=== PATIENT | female | born 1980 | race Caucasian/White ===

== ENCOUNTER → 2021-07-31 | Day surgery (SDC) | payer BC ==
[~2021-07-31] MED LIST: ACETAMINOPHEN 1000 MG/100 ML 100 ML IV ONE; ATIVAN0.5 MG PO; BUPIVACAINE 0.25% 30ML SDV ONE; FENTANYL CITRATE/PF 100MCG/2 ML INJ ONE; HYDROCODON-ACE1 EA11 PO; LEXAPRO10 MG PO; LIDOCAINE 1% W/EPINEPHRINE 20 ML VIAL ONE; MEPERIDINE HCL INJ 25 MG/ML VIAL ONE; SODIUM CHLORIDE 0.9% 50ML 100 ML ONE; TRINESSA PO; ZESTRIL10 MG PO
[2021-07-31 15:40] VITALS: BP 158/88
== END | disposition home or self-care (01) ==
LOC: OR 10:21
PROVIDERS: ATTEND Podiatrist Foot & Ankle Surgery
DX: S82.52XA Displaced fracture of medial malleolus of left tibia, initial encounter for closed fracture (principal); M79.672 Pain in left foot; M25.872 Other specified joint disorders, left ankle and foot; Z01.812 Encounter for preprocedural laboratory examination
CPT/HCPCS: 27792; 29898; 76000; 81025; J0131; J0690; J2175; J3010

== ENCOUNTER → 2022-01-06 | Day surgery (SDC) | payer BC ==
[~2022-01-06] MED LIST changes: -ACETAMINOPHEN 1000 MG/100 ML 100 ML IV ONE; -BUPIVACAINE 0.25% 30ML SDV ONE; +BUPIVACAINE HCL 0.5% INJ 30 ML VIAL INJ ONE; +HYDROMORPHONE 1MG/1ML INJ ONE; +KETOROLAC TROMETHAMINE 30 MG/ML VIAL ONE; -LIDOCAINE 1% W/EPINEPHRINE 20 ML VIAL ONE; +LIDOCAINE HCL 2% LOCAL INJ 5 ML SDV VIAL INJ ONE; -MEPERIDINE HCL INJ 25 MG/ML VIAL ONE; +MIDAZOLAM HCL 2 MG/2 ML VIAL ONE; +NEOSTIGMINE 1 MG/ML 10ML VIAL ONE; +ONDANSETRON HCL INJ 2MG/ML 2ML 2 MG/ML VIAL ONE; +POVIDONE IODINE 0.05% 0.05 % ML PO ONE; +PROPOFOL IV EMULSION 10 MG/ML 20 ML VIAL ONE; +SEVOFLURANE INHAL SOLN 250 ML PEN BTL ONE
[2022-01-06 14:25] VITALS: BP 147/86
== END | disposition home or self-care (01) ==
LOC: OR 11:45
PROVIDERS: ATTEND Podiatrist Foot & Ankle Surgery
DX: T84.84XA Pain due to internal orthopedic prosthetic devices, implants and grafts, initial encounter (principal); G58.8 Other specified mononeuropathies; I10 Essential (primary) hypertension; R00.1 Bradycardia, unspecified; F17.210 Nicotine dependence, cigarettes, uncomplicated; Y83.8 Other surgical procedures as the cause of abnormal reaction of the patient, or of later complication, without mention of misadventure at the time of the procedure; Z88.8 Allergy status to other drugs, medicaments and biological substances; Z01.810 Encounter for preprocedural cardiovascular examination; Z01.812 Encounter for preprocedural laboratory examination; Z20.822 Contact with and (suspected) exposure to COVID-19; Z79.899 Other long term (current) drug therapy
CPT/HCPCS: 20680; 76000; 81025; 93005; J0690; J1170; J1885; J2001; J2250; J2405; J2704; J3010; U0002; J2710